=== PATIENT | female | born 1960 | race Two or more races ===

== ENCOUNTER → 2016-06-23 | Outpatient (REF) | payer OTHER | END | disposition home or self-care (01) | LOC: M SFHCWAGY 10:42 | PROVIDERS: ATTEND Nurse Practitioner Women's Health | DX: Z01.419 Encounter for gynecological examination (general) (routine) without abnormal findings (principal); Z11.51 Encounter for screening for human papillomavirus (HPV) | CPT/HCPCS: 87624; G0123; G0463 ==

== ENCOUNTER → 2016-11-01 | Outpatient (CLI) | payer OTHER ==
[2016-11-01 13:45] LABS: IMMUNOGLOBULIN E 66.6 IU/ML (<100)
[2016-11-04 00:06] LABS: ALPHA 1 ANTITRYPSIN 159 mg/dL (90-200); D001-IgE D pteronyssinus <0.10 kU/L (Class 0); E001-IgE Cat Epith/Dander < 0.10 kU/L (Class 0); E005-IgE Dog Dander < 0.10 kU/L (Class 0); F002-IgE Milk < 0.10 kU/L (Class 0); F004-IgE Wheat < 0.10 kU/L (Class 0); F013-IgE Peanut < 0.10 kU/L (Class 0); F014-IgE Soybean < 0.10 kU/L (Class 0); F026-IgE Pork < 0.10 kU/L (Class 0); F027-IgE Beef < 0.10 kU/L (Class 0); F245-IgE Egg, Whole < 0.10 kU/L (Class 0); FX02-IgE Food Mix (Sea Foods) Negative (.); G002-IgE Bermuda Grass < 0.10 kU/L (Class 0); G008-IgE Kentucky Bluegrass < 0.10 kU/L (Class 0); M001-IgE Penicillium chrysogen < 0.10 kU/L (Class 0); M002 IgE Cladosporium herbaru < 0.10 kU/L (Class 0); M003 IgE Aspergillus fumigatu < 0.10 kU/L (Class 0); M006-IgE Alternaria alternata < 0.10 kU/L (Class 0); T001-IgE Maple/Box Elder < 0.10 kU/L (Class 0); T003-IgE Common Silver Birch < 0.10 kU/L (Class 0); T007-IgE Oak, White < 0.10 kU/L (Class 0); T008-IgE Elm, American < 0.10 kU/L (Class 0); T015-IgE Ash, White < 0.10 kU/L (Class 0); T041-IgE Hickory, White < 0.10 kU/L (Class 0); W001-IgE Ragweed, Short < 0.10 kU/L (Class 0); W009-IgE Plantain, English < 0.10 kU/L (Class 0); W014-IgE Pigweed, Rough < 0.10 kU/L (Class 0); W018-IgE Sheep Sorrel < 0.10 kU/L (Class 0)
== END ==
LOC: M LAB 11:27
PROVIDERS: ATTEND Allergy & Immunology
DX: R05 Cough (principal); H10.45 Other chronic allergic conjunctivitis

== ENCOUNTER → 2017-02-17 | Outpatient (REF) ==
[~2017-02-17] MED LIST: ATOR40TA75 PO; CLAR10CA3 PO; EYE-TAB2 PO; HYDR25OIN TOP; MONT10TA2 PO; PROAAER10
--- NOTE | 2017-02-17 15:21 | REP ---
RIGHT ANKLE, FOUR VIEWS: HISTORY: Pain. There is no acute fracture or dislocation. The joint space is normal in appearance. An osteophyte is present on the posterior calcaneus. IMPRESSION: There is no acute fracture or dislocation. Signed by Stanislav Celis MD 02/17/2017 03:26 P
--- NOTE | 2017-02-17 15:21 | REP ---
RIGHT FOOT, FOUR VIEWS: HISTORY: Pain. The patient is status post osteotomy of the first metatarsal. A metal screw is present. There is no acute fracture or dislocation. There is narrowing of the first metatarsophalangeal joint space. The remaining joint spaces are normal in appearance. An osteophyte is present on the posterior calcaneus. IMPRESSION: There is no acute fracture or dislocation. Signed by Stanislav Celis MD 02/17/2017 03:26 P
== END ==
LOC: M RAD 14:12
PROVIDERS: ATTEND Physician Assistant
DX: M25.571 Pain in right ankle and joints of right foot (principal); M79.671 Pain in right foot

== ENCOUNTER 2017-03-24 13:58 | Emergency (ER) | payer OTHER ==
[~2017-03-24] VITALS: Ht 152.4 cm; Wt 60.9 kg
[2017-03-24 13:59] VITALS: BP 143/89
[2017-03-24] MEDS ORDERED: ATOR40TA75 PO (14:10)
[2017-03-24] MEDS ORDERED: PROAAER10 (14:10)
[2017-03-24] MEDS ORDERED: CLAR10CA3 PO (14:10)
[2017-03-24] MEDS ORDERED: MONT10TA2 PO (14:10)
[2017-03-24] MEDS ORDERED: EYE-TAB2 PO (14:10)
[2017-03-24] MEDS ORDERED: HYDR25OIN TOP (15:31)
== END 2017-03-24 15:45 | disposition home or self-care (01) ==
LOC: M ED 13:58
DX: T78.40XA Allergy, unspecified, initial encounter (principal); R21 Rash and other nonspecific skin eruption; J45.909 Unspecified asthma, uncomplicated; Z78.0 Asymptomatic menopausal state; Z79.899 Other long term (current) drug therapy; J30.89 Other allergic rhinitis

== ENCOUNTER 2018-10-03 11:56 | Day surgery (SDC) | payer OTHER ==
[~2018-10-03] VITALS: Ht 152.4 cm; Wt 68.9 kg
[~2018-10-03 11:56] MED LIST changes: +FLUT1LOT; +NS 1,000 ML IV ONE; +OMEP-218 PO; +ONDANSETRON 4MG/2ML VIAL (J2405) As Ordered ONE; +SYMB80INH INH
[2018-10-03] MEDS ORDERED: LIDOCAINE 2% INJ 100 MG/5 ML SDV (FOR ANES.) As Ordered ONE (12:54)
[2018-10-03] MEDS ORDERED: PROPOFOL 200 MG/20 ML VIAL As Ordered ONE (12:54)
--- NOTE | 2018-10-03 12:59 | ROOR ---
Patient Name: Nery Tse Procedure Date: 10/03/2018 12:42 PM Date of : 1960 Age: 57 Room: [facility] Gender: Female Note Status: Finalized Procedure: Upper Endoscopy + Biopsies Indications: Heartburn, Exclusion of Granados's esophagus Providers: Nir Myers MD Referring MD: Dustin Thibodeaux Md Requesting Provider: Medicines: Monitored Anesthesia Care Complications: No immediate complications. Procedure: Pre-Anesthesia Assessment: - The heart rate, respiratory rate, oxygen saturations, blood pressure, adequacy of pulmonary ventilation, and response to care were monitored throughout the procedure. The Endoscope was introduced through the mouth, and advanced to the second part of duodenum. The upper GI endoscopy was accomplished without difficulty. The patient tolerated the procedure well. Findings: The Z-line was irregular and was found 35 cm from the incisors. Multiple biopsies were obtained with cold forceps for evaluation to rule out Granados's Esophagus randomly at the gastroesophageal junction. A small hiatal hernia was present. No other significant abnormalities were identified in a careful examination of the stomach. The exam of the duodenum was otherwise normal. Impression: - Z-line irregular, 35 cm from the incisors. - Small hiatal hernia. - Multiple biopsies were obtained at the gastroesophageal junction. - The examination was otherwise normal. Recommendation: - Patient has a contact number available for emergencies. The signs and symptoms of potential delayed complications were discussed with the patient. Return to normal activities tomorrow. Written discharge instructions were provided to the patient. - High fiber diet. - Discharge patient to home. - Follow an antireflux regimen. - Continue present medications. - Await pathology results. - Telephone GI clinic for pathology results in 1 week. - Return to referring physician. - The findings and recommendations were discussed with the patient's family. Nir Myers MD Nir Myers MD 10/03/2018 12:58:44 PM Electronically signed by Nir Myers MD Number of Addenda: 0 Note Initiated On: 10/03/2018 12:42 PM Estimated Blood Loss: Estimated blood loss: none.
[2018-10-03 13:25] VITALS: BP 118/80
== END 2018-10-03 13:35 | disposition home or self-care (01) ==
LOC: M OPP 11:56
PROVIDERS: ATTEND Internal Medicine Gastroenterology
DX: K22.8 Other specified diseases of esophagus (principal); K44.9 Diaphragmatic hernia without obstruction or gangrene; R12 Heartburn

== ENCOUNTER → 2020-01-21 | Outpatient (CLI) | payer OTHER ==
[~2020-01-21] MED LIST changes: -MONT10TA2 PO; +MONT10TA4 PO; -NS 1,000 ML IV ONE; -ONDANSETRON 4MG/2ML VIAL (J2405) As Ordered ONE
--- NOTE | 2020-01-21 12:42 | REPMRS ---
Patient History The patient states she has not had a clinical breast exam in over a year. Patient is postmenopausal. Family history of colorectal cancer in maternal grandmother, breast cancer at age 55 in sister. 3D TOMOSYNTHESIS WAS PERFORMED. [facility] lifetime risk for breast cancer is 19.8%. VOLPARA DENSITY B. Digital Woman Screen Mammo: January 21, 2020 - Exam #: [id number] Bilateral CC and MLO view(s) were taken. Technologist: Marlee Roberts, Technologist Prior study comparison: 2019, bilateral digital mammo screening bilat, performed at [facility]. FINDINGS: The breast tissue is heterogeneously dense. This may lower the sensitivity of mammography. There has been no change in the appearance of the mammogram from the prior studies. There is a moderate amount of residual fibroglandular tissue which is fairly symmetric. There is no interval development of dominant mass, areas of architectural distortion, or clustered microcalcification typical of malignancy. Assessment: BI-RADS/ACR category 1 mammogram. Negative Mammogram. Recommendation Routine screening mammogram in 1 year (for women over age 40). This mammogram was interpreted with the aid of an FDA-approved computer-aided dectection system. Electronically Signed By: Red Napier MD 01/21/20 [id number]
== END ==
LOC: M WHC 10:23
PROVIDERS: ATTEND Physician Assistant Medical
DX: Z12.31 Encounter for screening mammogram for malignant neoplasm of breast (principal); Z78.0 Asymptomatic menopausal state; Z80.3 Family history of malignant neoplasm of breast; Z80.0 Family history of malignant neoplasm of digestive organs

== ENCOUNTER 2020-05-18 16:28 | Emergency (ER) | payer OTHER ==
[~2020-05-18] VITALS: Ht 152.4 cm; Wt 66.8 kg
[~2020-05-18 16:28] MED LIST changes: -MONT10TA4 PO; +MONT5TAB2 PO
[2020-05-18 16:29] VITALS: BP 132/81
[2020-05-18 18:15] LABS: BASO % 0.8 % (0.0-1.0); EOS # 0.1 10^3/uL (0.0-0.5); EOS % 2.7 % (0.0-3.0); HEMOGLOBIN 12.9 g/dl (12.0-15.5); LYMPH # 1.6 10^3/uL (1.5-5.0); LYMPH % 31.5 % (24.0-44.0); MEAN CORPUSCULAR HEMOGLOBIN 28.2 pg (27.0-33.0); MEAN CORPUSCULAR HGB CONC 32.3 g/dl (32.0-36.5); MEAN CORPUSCULAR VOLUME 87.3 fl (80.0-96.0); MONO # 0.4 10^3/uL (0.0-0.8); MONO % 8.4 % (0.0-5.0); NEUTROPHILS # 2.9 10^3/uL (1.5-8.5); NEUTROPHILS % 56.2 % (36.0-66.0); PLATELET COUNT, AUTOMATED 261 10^3/uL (150-450); RED BLOOD COUNT 4.58 10^6/uL (4.00-5.40); WHITE BLOOD COUNT 5.1 10^3/uL (4.0-10.0)
[2020-05-18 18:35] LABS: BLOOD UREA NITROGEN 26 MG/DL (7-18); CALCIUM LEVEL 8.9 MG/DL (8.5-10.1); CARBON DIOXIDE LEVEL 32 MEQ/L (21-32); CHLORIDE LEVEL 108 MEQ/L (98-107); GLOMERULAR FILTRATION RATE > 60.0 (>51); GLUCOSE, FASTING 101 MG/DL (70-100); POTASSIUM SERUM 3.9 MEQ/L (3.5-5.1); SODIUM LEVEL 141 MEQ/L (136-145)
[2020-05-18 18:51] LABS: ERYTHROCYTE SEDIMENTATION RATE 20 mm/hr (0-30)
--- NOTE | 2020-05-18 18:51 | REPVR ---
PROCEDURE INFORMATION: Exam: US Duplex Right Lower Extremity Veins, Limited Exam date and time: 05/18/2020 6:32 PM Age: 59 years old Clinical indication: Pain; Leg, lower; Right; Additional info: Swelling/pain TECHNIQUE: Imaging protocol: Real-time Duplex ultrasound of the Right Lower Extremity with 2-D henry scale, color Doppler flow and spectral waveform analysis with image documentation. Limited exam was focused on the right lower extremity veins. COMPARISON: No relevant prior studies available. FINDINGS: Right deep veins: Unremarkable. The common femoral, femoral and popliteal veins are patent without thrombus. Normal Doppler waveforms. Normal compressibility and/or augmentation response. Right superficial veins: Unremarkable. Saphenofemoral junction is patent without thrombus. Soft tissues: Unremarkable. IMPRESSION: No sonographic evidence of deep vein thrombosis. Electronically signed by: Jose Fuller On 05/18/2020 18:51:50 PM
[2020-05-18] MEDS ORDERED: ACETAMINOPHEN 500 MG TAB PO ONE (19:45)
--- NOTE | 2020-05-18 20:06 | REP ---
INDICATION: lower leg pain. COMPARISON: None. TECHNIQUE: AP and lateral views FINDINGS: No acute fracture or destructive osseous lesion. IMPRESSION: Negative <Electronically signed by Bharath Toth > 05/18/202001
== END 2020-05-18 20:32 | disposition home or self-care (01) ==
LOC: M ED 16:28
DX: M79.661 Pain in right lower leg (principal); Z91.013 Allergy to seafood; Z79.899 Other long term (current) drug therapy; Z79.51 Long term (current) use of inhaled steroids

== ENCOUNTER → 2020-07-29 | Outpatient (CLI) | payer OTHER ==
[~2020-07-29] MED LIST changes: +MONT10TA10 PO; -MONT5TAB2 PO
--- NOTE | 2020-07-29 20:15 | REPVR ---
PROCEDURE INFORMATION: Exam: MR Lumbar Spine Without Contrast Exam date and time: 07/29/2020 7:30 PM Age: 59 years old Clinical indication: Pain; Lumbago with sciatica; Right; Additional info: Pain in RT leg TECHNIQUE: Imaging protocol: Multiplanar magnetic resonance images of the lumbar spine without intravenous contrast. COMPARISON: No relevant prior studies available. FINDINGS: Vertebrae: T1 weighted images demonstrate mottled decreased signal throughout the vertebrae, findings which can be seen in association with chronic anemia or other myeloproliferative abnormality. This should be correlated with clinical evaluation. Spinal cord: Normal signal. No cord compression. L1-L2: Diffusely bulging annulus L1-L2. No neural compromise. L2-L3: Diffusely bulging annulus L2-L3 without neural compromise. L3-L4: Mild annular bulge L3-L4 without neural compromise. L4-L5: Bulging annulus L4-L5 with a small central disc protrusion mildly flattens the ventral subarachnoid space. Mild degenerative central spinal stenosis secondary to the bulging annulus, disc protrusion and degenerative changes in the facet joints with thickened ligaments. Severe proximal neural foraminal stenosis on the right. Bulging annulus in the foraminal zones touch the exiting L4 nerve roots far laterally. L5-S1: Bulging annulus with central disc protrusion L5-S1 without obvious neural compromise. Bilateral facet joint arthropathy. Soft tissues: Unremarkable. IMPRESSION: 1. T1 weighted images demonstrate mottled decreased signal throughout the vertebrae, findings which can be seen in association with chronic anemia or other myeloproliferative abnormality. This should be correlated with clinical evaluation. 2. Bulging annulus with small central disc protrusion at L4-L5 without neural compromise. Mild degenerative central spinal stenosis. Possible neural impingement on the exiting L4 nerve roots far laterally. 3. Bulging annuli L1-L2 to L3-L4 without neural compromise. Electronically signed by: Oracio Chavez On 07/29/2020 20:15:12 PM
== END ==
LOC: M RAD 17:52
PROVIDERS: ATTEND Physician Assistant Medical
DX: M51.26 Other intervertebral disc displacement, lumbar region (principal)

== ENCOUNTER → 2021-02-04 | Outpatient (CLI) | payer OTHER ==
--- NOTE | 2021-02-04 10:06 | REPMRS ---
Patient History The patient states she has not had a clinical breast exam in over a year. Patient is postmenopausal. Family history of colorectal cancer in maternal grandmother, breast cancer at age 55 in sister. Patient states no breast complaints today. Patient has signed MRS History Sheet. Digital Woman Screen Mammo: February 04, 2021 - Exam #: [id number] Bilateral CC and MLO view(s) were taken. Technologist: Cassidy Larose, Technologist Prior study comparison: January 21, 2020, bilateral digital woman screen mammo performed at [facility]. 2019, bilateral digital mammo screening bilat, performed at [facility]. FINDINGS: There are scattered fibroglandular densities. Screening. Digital screening (2D) mammography was performed bilaterally in the CC and MLO projections. Additionally, breast tomosynthesis (3D mammography) was performed bilaterally in the CC and MLO projections. Todays exam was compared to the prior exam/exams. By history, the patient has no complaints of a palpable breast abnormality or other significant breast complaints. The Volpara volumetric breast density category is B, there are scattered areas of fibroglandular densities. There is a radio-opaque disc marking the location of a mole on the left breast. There are stable, benign, intramammary lymph nodes, on the right. The breasts are unchanged in size and shape. There are no consuelo-soft tissue densities or spiculated masses. There is no internal architectural distortion. There are no suspicious consuelo-calcific clusters. Skin thickening or nipple retraction is not present. IMPRESSION: BI-RADS Category 2- Benign Findings. There is no evidence of malignant alteration of the breasts. Followup examination recommended in one year. This mammogram was read with the assistance of [employer],an FDA approved computer aided detection system for mammography.The lifetime Tyrer-Cuzick score is 19.2% Negative x-ray reports should not delay surgical consultation if a dominant or clinically suspicious mass is present. Not all breast cancers can be identified by mammography. Therefore, we recommend that you continue to perform regular breast self-examination and physical examination and then promptly contact your physician of any concerns or changes. Adenosis and dense breasts may obscure an underlying neoplasm. No significant changes when compared with prior studies. Assessment: BI-RADS/ACR category 2 mammogram. Benign Findings. Recommendation Routine screening mammogram of both breasts in 1 year. Electronically Signed By: Wei Montemayor MD 02/04/21 [id number]
--- NOTE | 2021-02-04 15:51 | REP ---
INDICATION: Dense breasts. COMPARISON: Screening mammogram, same day. TECHNIQUE: 2D whole breast ultrasound was performed on both breasts. FINDINGS: There are no cystic or solid masses in either breast. IMPRESSION: Normal bilateral breast ultrasound. BI-RADS category 1: Negative. <Electronically signed by Wei Montemayor > 02/04/21 [id number]
== END ==
LOC: M WHC 08:43
PROVIDERS: ATTEND Nurse Practitioner Primary Care
DX: Z12.31 Encounter for screening mammogram for malignant neoplasm of breast (principal)

== ENCOUNTER → 2021-06-17 | Outpatient (CLI) | payer OTHER ==
[~2021-06-17] MED LIST changes: +ISOVUE-370 76% 100ML VIAL As Ordered ONE; -MONT10TA10 PO; +MONT10TA97 PO; +OMEP-173 PO; -OMEP-218 PO
== END ==
LOC: M RAD 08:56
PROVIDERS: ATTEND Nurse Practitioner Primary Care
DX: R31.9 Hematuria, unspecified (principal)
CPT/HCPCS: 74178; Q9967

== ENCOUNTER → 2021-07-07 | Outpatient (REF) | payer OTHER ==
[~2021-07-07] MED LIST changes: -ISOVUE-370 76% 100ML VIAL As Ordered ONE
[2021-07-07 18:06] LABS: APPEARANCE, URINE CLEAR (CLEAR); BACTERIA, URINE AUTO NEGATIVE (NEGATIVE); BILIRUBIN, URINE AUTO NEGATIVE (NEGATIVE); BLOOD, URINE BLOOD 1+ (NEGATIVE); GLUCOSE, URINE (UA) AUTO NEGATIVE (NEGATIVE); KETONE, URINE AUTO NEGATIVE (NEGATIVE); LEUKOCYTE ESTERASE, URINE AUTO NEGATIVE (NEGATIVE); NITRITE, URINE AUTO NEGATIVE (NEGATIVE); PROTEIN, URINE AUTO NEGATIVE (NEGATIVE); RBC, URINE AUTO 0 /HPF (0-3); SPECIFIC GRAVITY URINE AUTO 1.002 (1.002-1.035); SQUAMOUS EPITHELIAL CELL UR AU 0 /HPF (0-6); UROBILINOGEN, URINE AUTO 0.2 mg/dL (0.0-2.0); WBC, URINE AUTO 1 /HPF (0-3)
[2021-07-07 18:32] LABS: COLOR, URINE YELLOW (YELLOW)
== END ==
LOC: M SMT 16:46
PROVIDERS: ATTEND Physician Assistant
DX: R31.9 Hematuria, unspecified (principal)

== ENCOUNTER → 2021-09-01 | Outpatient (REF) | payer OTHER ==
[2021-09-01 13:28] LABS: APPEARANCE, URINE HAZY (CLEAR); BACTERIA, URINE AUTO 1+ (NEGATIVE); BILIRUBIN, URINE AUTO NEGATIVE (NEGATIVE); BLOOD, URINE BLOOD 1+ (NEGATIVE); COLOR, URINE YELLOW (YELLOW); GLUCOSE, URINE (UA) AUTO NEGATIVE (NEGATIVE); KETONE, URINE AUTO NEGATIVE (NEGATIVE); LEUKOCYTE ESTERASE, URINE AUTO 2+ (NEGATIVE); MUCUS, URINE SMALL (NEGATIVE); NITRITE, URINE AUTO NEGATIVE (NEGATIVE); PROTEIN, URINE AUTO NEGATIVE (NEGATIVE); RBC, URINE AUTO 2 /HPF (0-3); SPECIFIC GRAVITY URINE AUTO 1.019 (1.002-1.035); SQUAMOUS EPITHELIAL CELL UR AU 13 /HPF (0-6); UROBILINOGEN, URINE AUTO 0.2 mg/dL (0.0-2.0); WBC, URINE AUTO 13 /HPF (0-3)
== END ==
LOC: M SMT 12:51
PROVIDERS: ATTEND Physician Assistant
DX: R31.9 Hematuria, unspecified (principal)

== ENCOUNTER → 2022-02-23 | Outpatient (CLI) | payer OTHER | LOC: M WHC 11:24 | PROVIDERS: ATTEND Nurse Practitioner Family | DX: Z12.31 Encounter for screening mammogram for malignant neoplasm of breast (principal) ==

== ENCOUNTER → 2022-03-21 | Outpatient (CLI) | payer OTHER | LOC: M EKG 13:28 | PROVIDERS: ATTEND Physician Assistant Medical | DX: M79.604 Pain in right leg (principal) ==

== ENCOUNTER → 2022-04-19 | Outpatient (CLI) | payer OTHER | LOC: M SOG 08:05 | PROVIDERS: ATTEND Orthopaedic Surgery Hand Surgery | DX: M79.642 Pain in left hand (principal) ==

== ENCOUNTER → 2023-03-24 | Outpatient (CLI) | payer OTHER | LOC: M WHC 10:56 | PROVIDERS: ATTEND Nurse Practitioner Family | DX: Z12.31 Encounter for screening mammogram for malignant neoplasm of breast (principal) ==

== ENCOUNTER → 2023-11-30 | Outpatient (REF) | payer OTHER ==
[2023-12-05 14:57] LABS: HPV APTIMA Not Detected (Not Detected)
== END ==
LOC: M SFHCWAGY 17:31
PROVIDERS: ATTEND Nurse Practitioner Family
DX: Z12.4 Encounter for screening for malignant neoplasm of cervix (principal)
CPT/HCPCS: 87624; G0123

== ENCOUNTER → 2024-12-03 | Outpatient (CLI) | payer OTHER | LOC: M WHC 13:28 | PROVIDERS: ATTEND Nurse Practitioner Family | DX: Z12.31 Encounter for screening mammogram for malignant neoplasm of breast (principal) ==

== ENCOUNTER 2025-01-22 09:46 | Day surgery (SDC) | payer OTHER ==
[~2025-01-22] VITALS: Ht 152.4 cm; Wt 65.7 kg
[~2025-01-22 09:46] MED LIST changes: +FLUT1BLS3 IH; +LORA-1041 PO; +PROA1AER2 INH; +THERTAB52 PO; +ZYRTTAB8 PO
[2025-01-22] MEDS: LR 1,000 ML IV SCH (10:15)
[2025-01-22] MEDS ORDERED: MIDAZOLAM INJ 2 MG/2 ML VIAL As Ordered ONE (10:52)
[2025-01-22] MEDS ORDERED: LIDOCAINE 2% 100 MG/5 ML SDV (FOR ANES.) As Ordered ONE (10:52)
[2025-01-22] MEDS: ceFAZolin SOD 2 GM IV ONCE IV ONE (11:42)
[2025-01-22] MEDS: LIDOCAINE 1% MDV 20 ML VIAL As Ordered ONE (11:51)
[2025-01-22] MEDS ORDERED: KETOROLAC 30 MG/ML 1 ML VIAL As Ordered ONE (12:06)
[2025-01-22] MEDS ORDERED: ONDANSETRON 4MG 2ML VIAL As Ordered ONE (12:06)
[2025-01-22] MEDS ORDERED: dexAMETHasone 4 MG/ML 1 ML VIAL As Ordered ONE (12:06)
[2025-01-22] MEDS ORDERED: ACETAMINOPHEN 1000MG/100ML IV BAG As Ordered ONE (12:06)
[2025-01-22] MEDS ORDERED: ONDANSETRON 4MG 2ML VIAL IV PRN (13:00)
[2025-01-22] MEDS ORDERED: MORPHINE 2 MG/ML 1 ML VIAL IV PRN ×2 (13:00→14:55)
[2025-01-22 14:13] VITALS: BP 139/71; TEMP 97; O2SAT 96
[2025-01-22] MEDS ORDERED: MORPHINE 4 MG/ML 1 ML VIAL IV PRN (14:55)
== END 2025-01-22 15:24 | disposition home or self-care (01) ==
LOC: M SDC 09:46
PROVIDERS: ATTEND Podiatrist Foot & Ankle Surgery
DX: M20.12 Hallux valgus (acquired), left foot (principal); M21.612 Bunion of left foot; T84.84XA Pain due to internal orthopedic prosthetic devices, implants and grafts, initial encounter; Y83.8 Other surgical procedures as the cause of abnormal reaction of the patient, or of later complication, without mention of misadventure at the time of the procedure; E78.00 Pure hypercholesterolemia, unspecified; Z79.899 Other long term (current) drug therapy; J45.909 Unspecified asthma, uncomplicated
CPT/HCPCS: 20680; 28299; 76000; 88300; 97116; 97161; C1713; J0131; J0665; J0690; J1100; J1885; J2250; J2405; J3010